=== PATIENT | female | born 1945 | race Caucasian/White ===

== ENCOUNTER 2017-04-28 20:31 | Emergency (ER) | payer MEDICARE ==
[2017-04-28 21:03] VITALS: BP 118/68
[2017-04-28] MEDS ORDERED: Cyclobenzaprine 10 MG Tab PO ONE (21:47)
[2017-04-28] MEDS ORDERED: Ketorolac 30 MG/ML SDV IM ONE (21:49)
--- NOTE | 2017-04-28 21:56 | EDM.PDOC ---
ED HPI GENERAL MEDICAL PROBLEM - General Chief Complaint: ENT Problem Stated Complaint: PAIN IN NECK Time Seen by Provider: 04/28/17 20:34 Source of Information: Reports: Patient, Family History Limitations: Reports: No Limitations - History of Present Illness INITIAL COMMENTS - FREE TEXT/NARRATIVE: pt arrived with pain on the rt side of her neck. She was sitting and suddenly developed the pain. Onset: Today Duration: Hour(s): Location: Reports: Neck Quality: Reports: Sharp, Stabbing Associated Symptoms: Reports: Other (pain in the rt neck area. ) right neck Pain Score (Numeric/FACES): 8 - Related Data Allergies Allergy/AdvReac Type Severity Reaction Status Date / Time phenylpropanolamine HCl Allergy Confusion Verified 04/23/15 04:31 [From Tetra] Home Meds: Home Meds Metoprolol Tartrate 12.5 mg PO BID 05/05/14 [History] Baclofen 10 mg PO DAILY 05/13/14 [History] lamoTRIgine [Lamictal ODT] 150 mg PO BID 05/13/14 [History] Citalopram [Citalopram HBr] 40 mg PO DAILY 04/23/15 [History] Hydrocodone/Acetaminophen [Vicodin 5-300 mg Tablet] 1 tab PO Q6H PRN 04/23/15 [ History] Pravastatin [Pravachol] 40 mg PO DAILY 04/23/15 [History] Past Medical History 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 - Past Surgical History Other Neurological Surgeries/Procedures: evacuation of hematoma Social & Family History - Tobacco Use Smoking Status *Q: Never Smoker Second Hand Smoke Exposure: No - Caffeine Use Caffeine Use: Reports: Coffee - Recreational Drug Use Recreational Drug Use: No ED ROS ENT - Review of Systems Review Of Systems: See Below Constitutional: Reports: No Symptoms HEENT: Reports: Other (Pain on the rt side of the neck) Respiratory: Reports: No Symptoms Cardiovascular: Reports: No Symptoms Endocrine: Reports: No Symptoms GI/Abdominal: Reports: No Symptoms : Reports: No Symptoms ED EXAM, ENT - Physical Exam Exam: See Below Text/Narrative:: Pt arrived with pain on the rt side of the neck Exam Limited By: No Limitations General Appearance: Alert, Anxious, Moderate Distress Ears: Normal TMs Nose: Normal Inspection Mouth/Throat: Normal Inspection Head: Atraumatic Neck: Other (pt has a tight muscle spasm of the rt side of the neck. r) Respiratory/Chest: No Respiratory Distress Cardiovascular: Regular Rate, Rhythm GI/Abdominal: Soft, Non-Tender Rectal (Female) Exam: Deferred Back: Normal Inspection Course - Vital Signs Last Recorded V/S: Last Vital Signs Temp 37.0 C 04/28/17 21:21 Pulse 64 04/28/17 21:21 Resp 18 04/28/17 21:21 BP 118/68 04/28/17 21:21 Pulse Ox 91 L 04/28/17 21:21 - Orders/Labs/Meds Orders: Active Orders 24 hr Category Date Time Status Ketorolac [Toradol] Med 04/28/17 21:49 Once 30 mg IM ONETIME ONE Meds: Medications Discontinued Medications Generic Name Dose Route Start Last Admin Trade Name Freq PRN Reason Stop Dose Admin Cyclobenzaprine HCl 5 mg 04/28/17 21:47 Flexeril PO 04/28/17 21:48 ONETIME ONE - Re-Assessments/Exams Free Text/Narrative Re-Assessment/Exam: 04/28/17 21:55 pt arrived with pain on the rt side of the neck. She was given torosdol 30mg im and flexeril 5mg po. d Departure - Departure Time of Disposition: 21:56 Disposition: Home, Self-Care 01 Condition: Fair Clinical Impression: Cervical paraspinous muscle spasm - Discharge Information Forms: ED Department Discharge Care Plan Goals: Increase baclofen 10mg to bid-- to relax the muscle spasm. tylenol 650 q6h prn for pain, use the hydrocodone as needed for severe pain, moist warm heat to the cervical area as needed for pain. - My Orders Last 24 Hours: My Active Orders 04/28/17 21:49 Ketorolac [Toradol] 30 mg IM ONETIME ONE - Assessment/Plan Last 24 Hours: My Active Orders 04/28/17 21:49 Ketorolac [Toradol] 30 mg IM ONETIME ONE
== END 2017-04-28 22:18 | disposition home or self-care (01) ==
LOC: JP.ED 20:31
DX: M62.838 Other muscle spasm (principal); Z79.899 Other long term (current) drug therapy; Z88.8 Allergy status to other drugs, medicaments and biological substances
CPT/HCPCS: 96372; 99283; A9270; J1885

== ENCOUNTER 2019-04-27 05:57 | Emergency (ER) | payer MEDICARE ==
[2019-04-27 06:33] VITALS: BP 192/69
--- NOTE | 2019-04-27 06:36 | EDM.PDOC ---
<Marvin Pope - Last Filed: 04/27/19 11:06> ED HPI GENERAL MEDICAL PROBLEM - General Chief Complaint: Headache Stated Complaint: FACE PAIN RIGHT SIDE Time Seen by Provider: 04/27/19 06:17 - Related Data Allergies Allergy/AdvReac Type Severity Reaction Status Date / Time benzonatate Allergy Cannot Verified 04/27/19 06:20 [From Tessalon Perles] Remember divalproex sodium Allergy Cannot Verified 04/27/19 06:18 Remember levetiracetam [From Keppra] Allergy Cannot Verified 04/27/19 06:18 Remember oxcarbazepine Allergy Cannot Verified 04/27/19 06:20 [From Trileptal] Remember phenylpropanolamine HCl AdvReac Confusion Verified 04/29/17 10:10 [From Tetra] Home Meds: Home Meds Metoprolol Tartrate 12.5 mg PO BID 05/05/14 [History] Baclofen 10 mg PO DAILY 05/13/14 [History] lamoTRIgine [Lamictal ODT] 200 mg PO BID 05/13/14 [History] Citalopram [Citalopram HBr] 40 mg PO DAILY 04/23/15 [History] Pravastatin [Pravachol] 40 mg PO DAILY 04/23/15 [History] traZODone 200 mg PO BEDTIME PRN 04/27/19 [History] Course - Vital Signs Last Recorded V/S: Last Vital Signs Temp 96 F 04/27/19 06:08 Pulse 54 L 04/27/19 06:32 Resp 10 L 04/27/19 06:32 BP 192/69 H 04/27/19 06:32 Pulse Ox 95 04/27/19 06:32 - Orders/Labs/Meds Labs: Laboratory Tests 04/27/19 04/27/19 04/27/19 Range/Units 06:33 06:33 06:33 WBC 3.2 L (4.5-11.0) K/uL RBC 4.77 (3.30-5.50) M/uL Hgb 12.8 (12.0-15.0) g/dL Hct 41.7 (36.0-48.0) % MCV 87 (80-98) fL MCH 27 (27-31) pg MCHC 31 L (32-36) % Plt Count 208 (150-400) K/uL Neut % (Auto) 1 L (36-66) % Lymph % (Auto) 76 H (24-44) % [place] % (Auto) 16 H (2-6) % Eos % (Auto) 5 H (2-4) % Baso % (Auto) 3 H (0-1) % PT 9.8 (9.5-12.0) sec INR 0.88 (0.80-1.20) Sodium 143 (140-148) mmol/L Potassium 4.3 (3.6-5.2) mmol/L Chloride 105 (100-108) mmol/L Carbon Dioxide 31 (21-32) mmol/L Anion Gap 7.3 (5.0-14.0) mmol/L BUN 26 H D (7-18) mg/dL Creatinine 1.7 H D (0.6-1.0) mg/dL Est Cr Clr Drug Dosing 22.61 mL/min Estimated GFR (MDRD) 29 L (>60) Glucose 101 (74-106) mg/dL Calcium 9.4 (8.5-10.1) mg/dL Total Bilirubin 0.3 (0.2-1.0) mg/dL AST 23 (15-37) U/L ALT 25 (12-78) U/L Alkaline Phosphatase 106 (46-116) U/L Total Protein 7.6 (6.4-8.2) g/dL Albumin 3.5 (3.4-5.0) g/dL Globulin 4.1 H (2.3-3.5) g/dL Albumin/Globulin Ratio 0.9 L (1.2-2.2) Meds: Medications Discontinued Medications Generic Name Dose Route Start Last Admin Trade Name Freq PRN Reason Stop Dose Admin Fentanyl 50 mcg 04/27/19 06:38 04/27/19 06:43 Sublimaze IVPUSH 04/27/19 06:39 50 mcg ONETIME ONE Administration Proparacaine HCl 1 ml 04/27/19 07:18 04/27/19 07:44 Proparacaine 0.5% Ophth Soln EYERT 04/27/19 07:19 2 drop ONETIME ONE Administration Proparacaine HCl Confirm 04/27/19 07:20 Proparacaine 0.5% Ophth Soln Administered 04/27/19 07:21 Dose 15 ml .ROUTE .STK-MED ONE - Re-Assessments/Exams Free Text/Narrative Re-Assessment/Exam: 04/27/19 07:37 74-year-old female with intense eye pain brought in by ambulance this morning. Initially evaluated by Dr. Vicente, CT scan done and negative. Pain seems to have resolved. Patient has difficulty speaking with significant expressive aphasia due to her past CVA, and initially it was felt that the right eye was the source of pain. However when I went to anesthetize the eye to check eye pressure, the pointed out that it was the left eye that was hurting her. The eye was numbed with proparacaine and a Brandon-Pen was used to check pressure and it was 14. She did not seem to have any pain any longer. After the patient becomes more alert when the fentanyl wears off and if the pain doesn't recur, she'll be able to go home with her . Departure - Departure Time of Disposition: 08:35 Disposition: Home, Self-Care 01 Clinical Impression: Trigeminal neuralgia of left side of face - Discharge Information Instructions: Neuropathic Pain Referrals: PCP,None [Primary Care Provider] - Forms: ED Department Discharge Care Plan Goals: Continue your current medications, activity and diet as tolerated. Return or call if symptoms recur and are persistent or you develop other concerns. 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 - Past Surgical History Other Neurological Surgeries/Procedures: evacuation of hematoma Social & Family History - Tobacco Use Smoking Status *Q: Unknown Ever Smoked - Caffeine Use Caffeine Use: Reports: Coffee ED ROS GENERAL - Review of Systems Review Of Systems: Unable To Obtain - Physical Exam Exam: See Below Exam Limited By: Physical Impairment General Appearance: Alert, Mild Distress Eye Exam: Bilateral Eye: Normal Inspection, PERRL (Minimal) Ears: Normal External Exam, Normal Canal, Hearing Grossly Normal, Normal TMs Nose: Normal Inspection, Normal Mucosa, No Blood Throat/Mouth: Normal Inspection, Normal Lips, Normal Teeth, Normal Gums, Normal Oropharynx, Normal Voice, No Airway Compromise Head Exam: Atraumatic, Normocephalic Neck: Normal Inspection, Supple, Non-Tender, Full Range of Motion Respiratory/Chest: No Respiratory Distress, Lungs Clear, Normal Breath Sounds, No Accessory Muscle Use, Chest Non-Tender Cardiovascular: Regular Rate, Rhythm, No Murmur GI/Abdominal: Soft, Non-Tender Neuro Exam (Abbreviated): Alert, Slow to Respond, Other (deficit on the right is not new, left power is 5 by 5) Course - Orders/Labs/Meds Labs: Laboratory Tests 04/27/19 04/27/19 04/27/19 Range/Units 06:33 06:33 06:33 WBC 3.2 L (4.5-11.0) K/uL RBC 4.77 (3.30-5.50) M/uL Hgb 12.8 (12.0-15.0) g/dL Hct 41.7 (36.0-48.0) % MCV 87 (80-98) fL MCH 27 (27-31) pg MCHC 31 L (32-36) % Plt Count 208 (150-400) K/uL Neut % (Auto) 1 L (36-66) % Lymph % (Auto) 76 H (24-44) % [place] % (Auto) 16 H (2-6) % Eos % (Auto) 5 H (2-4) % Baso % (Auto) 3 H (0-1) % PT 9.8 (9.5-12.0) sec INR 0.88 (0.80-1.20) Sodium 143 (140-148) mmol/L Potassium 4.3 (3.6-5.2) mmol/L Chloride 105 (100-108) mmol/L Carbon Dioxide 31 (21-32) mmol/L Anion Gap 7.3 (5.0-14.0) mmol/L BUN 26 H D (7-18) mg/dL Creatinine 1.7 H D (0.6-1.0) mg/dL Est Cr Clr Drug Dosing 22.61 mL/min Estimated GFR (MDRD) 29 L (>60) Glucose 101 (74-106) mg/dL Calcium 9.4 (8.5-10.1) mg/dL Total Bilirubin 0.3 (0.2-1.0) mg/dL AST 23 (15-37) U/L ALT 25 (12-78) U/L Alkaline Phosphatase 106 (46-116) U/L Total Protein 7.6 (6.4-8.2) g/dL Albumin 3.5 (3.4-5.0) g/dL Globulin 4.1 H (2.3-3.5) g/dL Albumin/Globulin Ratio 0.9 L (1.2-2.2) Meds: Medications Discontinued Medications Generic Name Dose Route Start Last Admin Trade Name Freq PRN Reason Stop Dose Admin Fentanyl 50 mcg 04/27/19 06:38 04/27/19 06:43 Sublimaze IVPUSH 04/27/19 06:39 50 mcg ONETIME ONE Administration Proparacaine HCl 1 ml 04/27/19 07:18 04/27/19 07:44 Proparacaine 0.5% Ophth Soln EYERT 04/27/19 07:19 2 drop ONETIME ONE Administration Proparacaine HCl Confirm 04/27/19 07:20 Proparacaine 0.5% Ophth Soln Administered 04/27/19 07:21 Dose 15 ml .ROUTE .STK-MED ONE
[2019-04-27] MEDS ORDERED: fentaNYL 100 MCG/2 ML SDV IVPUSH ONE (06:38)
--- NOTE | 2019-04-27 06:45 | CRLCT ---
INDICATION: Left side headache, history of stroke and bleed TECHNIQUE: CT Head without i.v. contrast. COMPARISON: None FINDINGS: CSF space: Ex vacuo dilatation of the left lateral ventricle is noted. Brain: Small chronic lacunar infarct is present in the left cerebellar hemisphere. [place]ian degeneration of the left cerebral peduncle is noted. No mass-effect or midline shift is seen. Mild diffuse cortical atrophy is noted. Moderate patchy regions of low attenuation are present in the periventricular white matter, likely due to chronic microvascular ischemic changes. Large region of encephalomalacia is present in the left MCA vascular territory noted without interval change. Calvarium: The visualized paranasal sinuses are well aerated. The mastoid air cells are clear. The patient is status post bilateral cataract removal. Patient is status post left frontal craniotomy. IMPRESSION: 1. No evidence of acute infarction, intracranial hemorrhage, or mass-effect seen. The findings were discussed with Officer at 6:44 AM. Dictated by Moise Rooney MD @ 04/27/2019 6:40:48 AM Please note that all CT scans at this facility use dose modulation, iterative reconstruction, and/or weight-based dosing when appropriate to reduce radiation dose to as low as reasonably achievable. Dictated by: Moise Rooney MD @ 04/27/2019 06:44:25 (Electronically Signed)
[2019-04-27] MEDS ORDERED: Proparacaine 0.5% Ophth Soln 15 ML Bottle EYERT ONE (07:18)
[2019-04-27] MEDS ORDERED: Proparacaine 0.5% Ophth Soln 15 ML Bottle ONE (07:20)
== END 2019-04-27 08:36 | disposition home or self-care (01) ==
LOC: JP.ED 05:57
DX: G50.0 Trigeminal neuralgia (principal); Z88.8 Allergy status to other drugs, medicaments and biological substances; Z79.899 Other long term (current) drug therapy; Z86.73 Personal history of transient ischemic attack (TIA), and cerebral infarction without residual deficits
CPT/HCPCS: 36415; 70450; 80053; 85025; 85610; 96374; 99283; 99284; A9270; J3010